=== PATIENT | male | born 1950 | race Caucasian/White ===

== ENCOUNTER 2024-04-23 09:49 | Emergency (ER) | payer OTHER ==
[~2024-04-23] VITALS: Ht 172.7 cm; Wt 72.0 kg
[2024-04-23 10:05] VITALS: BP 140/70
[2024-04-23] MEDS ORDERED: SILVER SULFA1 % EX (10:36)
[2024-04-23] MEDS ORDERED: SILVER SULFADIAZINE 50 GM/TUBE EA TOP ONE (10:40)
[2024-04-23] MEDS ORDERED: Diph, Acellular Pertussis, Tet 0.5 ML/VIAL (Tdap) SDV IM ONE (10:45)
== END 2024-04-23 10:50 | disposition home or self-care (01) | DRG 935 ==
LOC: ED 09:49
PROC: 2W2EX4Z Dressing of Right Hand using Bandage (ICD-10-PCS; principal; 2024-04-23)
DX: T23.261A Burn of second degree of back of right hand, initial encounter (principal); X08.8XXA Exposure to other specified smoke, fire and flames, initial encounter
CPT/HCPCS: 90715